=== PATIENT | male | born 1980 | race Caucasian/White ===

== ENCOUNTER 2016-12-07 02:01 | Emergency (ER) | payer OTHER, BC ==
[~2016-12-07] VITALS: Ht 177.8 cm; Wt 84.8 kg
[2016-12-07 02:37] VITALS: BP 132/90
[2016-12-07] MEDS ORDERED: SIMVASTATIN20 MG PO (02:38)
== END 2016-12-07 02:38 | disposition home or self-care (01) ==
LOC: EME 02:01
DX: S61.217A Laceration without foreign body of left little finger without damage to nail, initial encounter (principal); Z88.0 Allergy status to penicillin; W26.0XXA Contact with knife, initial encounter; Y93.G1 Activity, food preparation and clean up; Y92.511 Restaurant or cafe as the place of occurrence of the external cause; Y99.0 Civilian activity done for income or pay
CPT/HCPCS: 99281; 99284